=== PATIENT | female | born 1965 | race Hispanic/Latino ===

== ENCOUNTER 2017-08-24 06:15 | Day surgery (SDC) | payer OTHER ==
[2017-08-17 13:55] VITALS: BMI 31.1
[2017-08-24] MEDS ORDERED: HEPARIN SODIUM/NS 2,000 ML IV ONE (06:42)
[2017-08-24] MEDS ORDERED: Lidocaine 2% Inj (20ml) ONE (06:42)
[2017-08-24] MEDS ORDERED: Phenylephrine 10 mg/ml Inj ONE (06:44)
[2017-08-24] MEDS ORDERED: Iodixanol 320 MG/ML 100 ML BOTTLE IV ONE (06:47)
[2017-08-24] MEDS ORDERED: Iohexol 350mgl/ml 50 ML ONE (06:47)
[2017-08-24] MEDS ORDERED: Iodixanol 320 MG/ML 200 ML BOTTLE IV ONE (06:48)
[2017-08-24] MEDS ORDERED: Nitroglycerin 50mg in D5W 0 MG/0 ML BOTTLE IV ONE (06:49)
[2017-08-24] MEDS ORDERED: Midazolam 2 MG/2 ML VIAL ONE ×3 (07:32→08:03)
[2017-08-24] MEDS ORDERED: Sodium Chloride 0.9% 1,000 ML IV SCH (08:30)
--- NOTE | 2017-08-24 19:13 | CARDCATH ---
PROCEDURE DATE: 08/24/2017 HISTORY: The patient is a 51-year-old woman who presents with palpitations and chest pain. A stress test showed apical ischemia. Because of this, cardiac catheterization was recommended. PROCEDURES: Left heart catheterization with coronary arteriography and left ventriculogram. The right femoral artery was cannulated with a 6-Qatari sheath; there were no complications. I performed moderate sedation, which included the presence of an independent trained observer that assisted in monitoring the patient's level of consciousness and physiologic status. After administration of Versed and fentanyl, my intra-service time was 15 minutes. FINDINGS ON CATHETERIZATION: Revealed a left ventricle that was within normal limits. Estimated ejection fraction was 60%. The coronary anatomy revealed a right codominant circulation. The RCA revealed diffuse intimal irregularities without significant stenoses. The left main artery was unremarkable. The LAD was a tortuous vessel. In the very distal portion of the LAD, there was a 50% stenosis noted. The diagonal vessels were free of significant disease. The circumflex artery was free of significant disease. Manual compression was used to close the femoral artery site. The patient tolerated the procedure well. IMPRESSION: In summary, the procedure revealed intimal irregularities without critical lesions. There was a distal 50% stenosis in the very distal portion of the LAD at the place of a bend. LV function is normal. Given these findings, the patient's treatment should be medical therapy with cardiac risk reduction program. Edgar Lambert MD
--- NOTE | 2017-08-27 14:48 | CARD ---
APPROVED REPORT EKG Measurement Heart [id number] <Conclusion> Normal sinus rhythm Normal ECG
== END 2017-08-24 15:30 | disposition home or self-care (01) ==
LOC: CATH 06:15
PROVIDERS: ATTEND Internal Medicine Cardiovascular Disease
DX: I25.10 Atherosclerotic heart disease of native coronary artery without angina pectoris (principal); R94.39 Abnormal result of other cardiovascular function study; R00.2 Palpitations; R07.9 Chest pain, unspecified
CPT/HCPCS: 93458; 99152; 99153; C1769; C1887; C2629; J1644; J2250; J3010; J7030; J7040